=== PATIENT | male | born 1975 | race Caucasian/White ===

== ENCOUNTER 2021-05-22 00:05 | Emergency (ER) | payer OTHER ==
[~2021-05-22] VITALS: Ht 167.6 cm; Wt 111.0 kg
[2021-05-22] MEDS ORDERED: LIDOCAINE HCL/PF 1% 10 MG/ML 5ML VIAL INFIL ONE (01:15)
[2021-05-22] MEDS ORDERED: AMOXICILLIN/POTASSIUM CLAVULANATE 875/125MG TAB PO ONE (01:15)
[2021-05-22] MEDS ORDERED: SODIUM CHLORIDE 0.9% 1,000 ML IV ONE (01:15)
[2021-05-22] MEDS ORDERED: BACITRACIN ZINC OINT UDPKT TOP ONE (01:15)
[2021-05-22] MEDS ORDERED: ACETAMINOPHEN 325MG TABLET PO ONE (01:15)
[2021-05-22] MEDS ORDERED: TETANUS, DIPHTHERIA, PERTUSSIS VAC/PF 0.5ML (>10YR OLD) IM ONE (01:15)
[2021-05-22] MEDS ORDERED: AMOX1TAB16 MT (02:34)
[2021-05-22 03:55] VITALS: BP 134/77
== END 2021-05-22 03:57 | disposition home or self-care (01) ==
LOC: ER 00:05
DX: S01.21XA Laceration without foreign body of nose, initial encounter (principal); S70.372A Other superficial bite of left thigh, initial encounter; X99.1XXA Assault by knife, initial encounter; Y07.04 Female partner, perpetrator of maltreatment and neglect; W54.0XXA Bitten by dog, initial encounter; Y93.89 Activity, other specified; Y92.018 Other place in single-family (private) house as the place of occurrence of the external cause
CPT/HCPCS: 12013; 99284; J3490; J7030; Z7610